=== PATIENT | male | born 1950 | race Two or more races ===

== ENCOUNTER 2023-04-18 12:31 | Inpatient (IN) | payer MEDICARE, OTHER ==
[~2023-04-18] VITALS: Ht 162.6 cm; Wt 84.4 kg
[2023-04-18 13:05] LABS: BASOPHILS % (AUTO) 0.7 % (0.0-2.0); EOSINOPHILS % (AUTO) 0.7 % (0.0-6.0); HEMATOCRIT 41 % (39-51); HEMOGLOBIN 13.5 g/dL (13.5-17.5); LYMPHOCYTES # (AUTO) 1.6 K/uL (0.8-4.8); LYMPHOCYTES % (AUTO) 24.1 % (20.0-44.0); MEAN CORPUSCULAR HEMOGLOBIN 30 PG (26.0-33.0); MEAN CORPUSCULAR HGB CONC 33 g/dl (31.0-36.0); MEAN CORPUSCULAR VOLUME 89 fL (80-96); MONOCYTES # (AUTO) 0.7 K/uL (0.1-1.30); MONOCYTES % (AUTO) 10.3 % (2.0-12.0); NEUTROPHILS # (AUTO) 4.1 K/uL (1.8-8.9); NEUTROPHILS % (AUTO) 64.2 % (43.0-81.0); PLATELET COUNT (AUTO) 200 K/uL (150-450); RED BLOOD CELL COUNT(AUTO) 4.57 MIL/uL (4.5-6.0); RED CELL DISTRIBUTION WIDTH 14.5 % (11.5-15.0); WHITE BLOOD COUNT (AUTO) 6.5 K/uL (4.3-11.0)
[2023-04-18 13:22] LABS: ALANINE AMINOTRANSFERASE 32 U/L (12-78); ALBUMIN 3.7 g/dL (3.4-5.0); ALKALINE PHOSPHATASE 82 U/L (46-116); ASPARTATE AMINOTRANSFERASE 21 U/L (15-37); BILIRUBIN,DIRECT 0.1 mg/dL (0.0-0.2); BILIRUBIN,TOTAL 0.3 mg/dL (0.2-1.0); CALCIUM, SERUM 9.1 mg/dL (8.5-10.1); CARBON DIOXIDE 25 mmol/L (21-32); CHLORIDE 98 mmol/L (98-107); CREATININE 1.2 mg/dL (0.6-1.3); GLUCOSE 135 mg/dL (74-106); POTASSIUM 4.4 mmol/L (3.5-5.1); SODIUM SERUM 134 mmol/L (136-145); TOTAL PROTEIN, SERUM 6.8 g/dL (6.4-8.2); UREA NITROGEN, BLOOD 22 mg/dL (7-18)
[2023-04-18] MEDS ORDERED: MULT-16 PO (13:35)
[2023-04-18] MEDS ORDERED: ESCI10TA PO (13:35)
[2023-04-18] MEDS ORDERED: DOCU100C36 PO (13:35)
[2023-04-18] MEDS ORDERED: VITA400C74 PO (13:35)
[2023-04-18] MEDS ORDERED: OXCA300T15 PO (13:35)
[2023-04-18] MEDS ORDERED: ATOR20TA PO (13:35)
[2023-04-18] MEDS ORDERED: NA P133E RC (13:35)
[2023-04-18] MEDS ORDERED: SODI100037 PO (13:35)
[2023-04-18] MEDS ORDERED: QUET50TA PO (13:35)
[2023-04-18] MEDS ORDERED: OMEG-158 PO (13:35)
[2023-04-18] MEDS ORDERED: LEVO150T8 PO (13:35)
[2023-04-18] MEDS ORDERED: BISA10SU11 RC (13:35)
[2023-04-18] MEDS ORDERED: SENN-261 PO (13:35)
[2023-04-18] MEDS ORDERED: LOSA100T31 PO (13:35)
[2023-04-18] MEDS ORDERED: ASPI-1420 PO (13:35)
[2023-04-18] MEDS ORDERED: ACET-2605 PO (13:35)
[2023-04-18] MEDS ORDERED: ACET-868 PO (13:35)
[2023-04-18] MEDS ORDERED: MAGN400T8 PO (13:35)
[2023-04-18] MEDS ORDERED: CARB15DR12 EACH EAR (13:35)
[2023-04-18] MEDS ORDERED: MAGN400O6 PO (13:35)
[2023-04-18] MEDS ORDERED: DIVA-78 PO (13:35)
[2023-04-18] MEDS ORDERED: AMLO-213 PO (13:35)
[2023-04-18] MEDS ORDERED: MONT10TA22 PO (13:35)
[2023-04-18] MEDS ORDERED: CHOL100043 PO (13:35)
[2023-04-18] MEDS ORDERED: ONDA-97 PO (13:35)
[2023-04-18] MEDS ORDERED: FLUT16SP BNOSTRILS (13:35)
[2023-04-18] MEDS ORDERED: QUET100T PO (14:26)
[2023-04-18] MEDS ORDERED: LORA10TA7 PO (14:26)
[2023-04-18] MEDS ORDERED: LORA-259 PO (14:26)
[2023-04-18] MEDS ORDERED: GUAI-1189 PO (14:26)
[2023-04-18] MEDS ORDERED: MAG HYDROX/AL HYDROX/SIMETH 30 ML UDC PO PRN (15:00)
[2023-04-18] MEDS ORDERED: ONDANSETRON HCL/PF 4 MG/2 ML VIAL IVP PRN (15:00)
[2023-04-18] MEDS ORDERED: MAGNESIUM HYDROXIDE 30 ML UDC PO PRN (15:00)
[2023-04-18] MEDS ORDERED: ACETAMINOPHEN 325 MG TABLET PO PRN (15:00)
[2023-04-18] MEDS ORDERED: HYDROCODONE/APAP 5/325MG TABLET PO PRN (15:00)
[2023-04-18] MEDS ORDERED: IV NS 0.9% 1,000 ML IV PRN (15:00)
[2023-04-18] MEDS ORDERED: ENOXAPARIN SODIUM 40 MG/0.4 ML DISP.SYRIN SQ SCH (15:00)
[2023-04-18] MEDS ORDERED: Z GUARD REMEDY 4 OZ OINT TP PRN (15:00)
[2023-04-18] MEDS ORDERED: NA PHOS,M-B/NA PHOS,DI-BA 1 EA ENEMA RC PRN (15:30)
[2023-04-18] MEDS ORDERED: LORAZEPAM 1 MG TABLET PO PRN (17:00)
[2023-04-18 20:00] VITALS: BP 131/71; TEMP 98.2; O2SAT 95
[2023-04-18] MEDS: QUETIAPINE FUMARATE 100 MG TABLET PO SCH (21:50)
[2023-04-18] MEDS: ATORVASTATIN 10 MG TABLET PO SCH (21:50)
[2023-04-18] MEDS: DIVALPROEX SODIUM 500 MG TABLET.DR PO SCH (21:50)
[2023-04-18] MEDS: OXCARBAZEPINE 150 MG TABLET PO SCH (21:50)
[2023-04-19] VITALS: BP 144/71; TEMP 97.3; O2SAT 96
[2023-04-19 05:03] VITALS: BP 141/81; TEMP 98.4; O2SAT 99
[2023-04-19] MEDS: DIVALPROEX SODIUM 500 MG TABLET.DR PO SCH ×3 (05:12→21:51)
[2023-04-19] MEDS: OXCARBAZEPINE 150 MG TABLET PO SCH ×3 (05:12→21:51)
[2023-04-19] MEDS: QUETIAPINE FUMARATE 100 MG TABLET PO SCH ×3 (05:12→21:51)
[2023-04-19 06:26] LABS: BASOPHILS % (AUTO) 0.6 % (0.0-2.0); EOSINOPHILS % (AUTO) 0.5 % (0.0-6.0); HEMATOCRIT 40 % (39-51); HEMOGLOBIN 13.4 g/dL (13.5-17.5); LYMPHOCYTES # (AUTO) 1.4 K/uL (0.8-4.8); LYMPHOCYTES % (AUTO) 20.5 % (20.0-44.0); MEAN CORPUSCULAR HEMOGLOBIN 30 PG (26.0-33.0); MEAN CORPUSCULAR HGB CONC 33 g/dl (31.0-36.0); MEAN CORPUSCULAR VOLUME 90 fL (80-96); MONOCYTES # (AUTO) 0.8 K/uL (0.1-1.30); MONOCYTES % (AUTO) 12.2 % (2.0-12.0); NEUTROPHILS # (AUTO) 4.6 K/uL (1.8-8.9); NEUTROPHILS % (AUTO) 66.2 % (43.0-81.0); PLATELET COUNT (AUTO) 188 K/uL (150-450); RED BLOOD CELL COUNT(AUTO) 4.47 MIL/uL (4.5-6.0); RED CELL DISTRIBUTION WIDTH 14.2 % (11.5-15.0)
[2023-04-19 06:42] LABS: CALCIUM, SERUM 9.3 mg/dL (8.5-10.1); CREATININE 1.1 mg/dL (0.6-1.3); MAGNESIUM 1.9 mg/dL (1.8-2.4); PHOSPHORUS 3.3 mg/dL (2.5-4.9); POTASSIUM 4.6 mmol/L (3.5-5.1)
[2023-04-19 07:30] VITALS: BP 153/78; TEMP 97.7; O2SAT 97
[2023-04-19] MEDS: DOCUSATE SODIUM 100 MG CAPSULE PO SCH (08:41)
[2023-04-19] MEDS: ESCITALOPRAM OXALATE (10 MG) 10 MG TABLET PO SCH (08:41)
[2023-04-19] MEDS: MONTELUKAST SODIUM (10MG) 10 MG TABLET PO SCH (08:41)
[2023-04-19] MEDS: CHOLECALCIFEROL 1,000 UNIT TABLET (VIT D3) PO SCH (08:41)
[2023-04-19] MEDS: PANTOPRAZOLE 40 MG TABLET.DR PO SCH (08:41)
[2023-04-19] MEDS: ASPIRIN EC 81 MG TABLET.DR PO SCH (08:42)
[2023-04-19] MEDS: LEVOTHYROXINE SODIUM 75 MCG TABLET PO SCH (08:42)
[2023-04-19] MEDS: SODIUM CHLORIDE 1000 MG TABLET PO SCH (08:42)
[2023-04-19] MEDS: MULTIVITAMINS,THERAGRAN 1 UDTAB TABLET PO SCH (08:42)
[2023-04-19] MEDS: LOSARTAN POTASSIUM 50 MG TABLET PO SCH (08:43)
[2023-04-19] MEDS: FLUTICASONE PROPIONATE 16 GM BOTTLE NS SCH (08:43)
[2023-04-19] MEDS: AMLODIPINE BESYLATE 10 MG TABLET PO SCH (08:43)
[2023-04-19] MEDS ORDERED: IOHEXOL-350 100 ML VIAL IV ONE (13:15)
[2023-04-19] MEDS ORDERED: IV NS 0.9% 250 ML IV ONE (13:16)
[2023-04-19 16:25] VITALS: BP 114/63; TEMP 97.9; O2SAT 97
[2023-04-19 20:00] VITALS: BP 133/66; TEMP 98.6; TEMP 99; O2SAT 95; O2SAT 96
[2023-04-19] MEDS ORDERED: ENOXAPARIN SODIUM 40 MG/0.4 ML DISP.SYRIN SQ SCH (21:00)
[2023-04-19] MEDS: ATORVASTATIN 10 MG TABLET PO SCH (21:52)
[2023-04-20] VITALS: BP 112/7; TEMP 98.1; O2SAT 96
[2023-04-20 04:00] VITALS: BP 138/56; TEMP 97.5; O2SAT 98
[2023-04-20] MEDS: QUETIAPINE FUMARATE 100 MG TABLET PO SCH ×2 (05:28→12:29)
[2023-04-20] MEDS: OXCARBAZEPINE 150 MG TABLET PO SCH ×2 (05:28→12:29)
[2023-04-20] MEDS: DIVALPROEX SODIUM 500 MG TABLET.DR PO SCH ×2 (05:28→12:29)
[2023-04-20 07:05] LABS: BASOPHILS % (AUTO) 0.6 % (0.0-2.0); EOSINOPHILS # (AUTO) 0.1 K/uL (0.0-0.7); EOSINOPHILS % (AUTO) 1.6 % (0.0-6.0); HEMATOCRIT 40 % (39-51); HEMOGLOBIN 13.4 g/dL (13.5-17.5); LYMPHOCYTES # (AUTO) 1.9 K/uL (0.8-4.8); LYMPHOCYTES % (AUTO) 28.1 % (20.0-44.0); MEAN CORPUSCULAR HEMOGLOBIN 30 PG (26.0-33.0); MEAN CORPUSCULAR HGB CONC 34 g/dl (31.0-36.0); MEAN CORPUSCULAR VOLUME 90 fL (80-96); MONOCYTES # (AUTO) 0.9 K/uL (0.1-1.30); NEUTROPHILS # (AUTO) 3.8 K/uL (1.8-8.9); NEUTROPHILS % (AUTO) 56.7 % (43.0-81.0); PLATELET COUNT (AUTO) 184 K/uL (150-450); RED BLOOD CELL COUNT(AUTO) 4.43 MIL/uL (4.5-6.0); RED CELL DISTRIBUTION WIDTH 14.5 % (11.5-15.0); WHITE BLOOD COUNT (AUTO) 6.7 K/uL (4.3-11.0)
[2023-04-20 07:26] LABS: ALBUMIN 3.6 g/dL (3.4-5.0); BILIRUBIN,TOTAL 0.4 mg/dL (0.2-1.0); CALCIUM, SERUM 9.1 mg/dL (8.5-10.1); MAGNESIUM 1.8 mg/dL (1.8-2.4); PHOSPHORUS 3.4 mg/dL (2.5-4.9)
[2023-04-20 07:38] LABS: TOTAL PROTEIN, SERUM 6.7 g/dL (6.4-8.2)
[2023-04-20 08:00] VITALS: BP_SYST 123; BP_SYST 131; BP_DIAS 59; BP_DIAS 75; TEMP 97.8; TEMP 98.6; O2SAT 96; O2SAT 99
[2023-04-20] MEDS: LEVOTHYROXINE SODIUM 75 MCG TABLET PO SCH (08:11)
[2023-04-20] MEDS: FLUTICASONE PROPIONATE 16 GM BOTTLE NS SCH (08:11)
[2023-04-20] MEDS: MULTIVITAMINS,THERAGRAN 1 UDTAB TABLET PO SCH (08:11)
[2023-04-20] MEDS: PANTOPRAZOLE 40 MG TABLET.DR PO SCH (08:12)
[2023-04-20] MEDS: ASPIRIN EC 81 MG TABLET.DR PO SCH (08:12)
[2023-04-20] MEDS: ESCITALOPRAM OXALATE (10 MG) 10 MG TABLET PO SCH (08:12)
[2023-04-20] MEDS: MONTELUKAST SODIUM (10MG) 10 MG TABLET PO SCH (08:12)
[2023-04-20] MEDS: CHOLECALCIFEROL 1,000 UNIT TABLET (VIT D3) PO SCH (08:12)
[2023-04-20] MEDS: DOCUSATE SODIUM 100 MG CAPSULE PO SCH (08:12)
[2023-04-20] MEDS: AMLODIPINE BESYLATE 10 MG TABLET PO SCH (08:13)
[2023-04-20] MEDS: LOSARTAN POTASSIUM 50 MG TABLET PO SCH (08:14)
[2023-04-20] MEDS: SODIUM CHLORIDE 1000 MG TABLET PO SCH (08:16)
[2023-04-20 08:41] VITALS: BP_SYST 123; BP_SYST 124; BP_SYST 134; BP_DIAS 73; BP_DIAS 75; BP_DIAS 79
[2023-04-20 16:00] VITALS: BP 133/80; TEMP 98.6; O2SAT 99
[2023-04-24] MEDS ORDERED: CARBAMIDE PEROXIDE OTIC 15 ML BOTTLE EACH EAR SCH (22:00)
== END 2023-04-20 17:47 | disposition home or self-care (01) | DRG 74 ==
LOC: ER 12:49 → TELE 17:40
DX: G90.8 Other disorders of autonomic nervous system (principal); F02.83 Dementia in other diseases classified elsewhere, unspecified severity, with mood disturbance; G91.9 Hydrocephalus, unspecified; E03.9 Hypothyroidism, unspecified; G40.909 Epilepsy, unspecified, not intractable, without status epilepticus; G20.A1 Parkinson's disease without dyskinesia, without mention of fluctuations; E78.5 Hyperlipidemia, unspecified; F32.A Depression, unspecified; I10 Essential (primary) hypertension; K59.00 Constipation, unspecified; Z95.0 Presence of cardiac pacemaker; Z98.2 Presence of cerebrospinal fluid drainage device; H50.10 Unspecified exotropia
CPT/HCPCS: 36415; 70450-TC; 70496-TC; 70498-TC; 71045-TC; 80048-TC; 80053-TC; 80076-TC; 80164-TC; 83735-TC; 84100-TC; 84484-TC; 85025-TC; 87081-TC; 93307-TC; 93880-TC; 97112-TC; 97116-TC; 97530-TC; A4223; G0378; J1650; J7030; J7050; Q9967